=== PATIENT | female | born 1960 | race Caucasian/White ===

== ENCOUNTER → 2018-04-11 | Outpatient (CLI) | payer BC ==
--- NOTE | 2018-04-13 09:45 | MM ---
Reason for exam: screening (asymptomatic). Last mammogram was performed 3 years and 4 months ago. History: Patient is postmenopausal. Reductions of both breasts, 1986. Took hormonal contraceptives for 4 years beginning at age 17. Physical Findings: A clinical breast exam by your physician is recommended on an annual basis and results should be correlated with mammographic findings. MG Screening Mammo w CAD Bilateral CC and MLO view(s) were taken. Prior study comparison: December 24, 2014, bilateral MG screening mammo w CAD. April 22, 2012, bilateral digital screening mammo w/CAD. The breast tissue is almost entirely fat. There is chronic nodularity in the right breast. Bilateral breast mammoplasty changes. No significant changes when compared with prior studies. ASSESSMENT: Negative, BI-RAD 1 RECOMMENDATION: Routine screening mammogram of both breasts in 1 year.
== END | disposition home or self-care (01) ==
LOC: RADMAMWWP 10:56
PROVIDERS: ATTEND Family Medicine
DX: Z12.31 Encounter for screening mammogram for malignant neoplasm of breast (principal)
CPT/HCPCS: 77067

== ENCOUNTER → 2019-05-12 | Outpatient (CLI) | payer BC ==
--- NOTE | 2019-05-15 13:25 | MM ---
Reason for exam: screening (asymptomatic). Last mammogram was performed 1 year and 1 month ago. History: Patient is postmenopausal. Reductions of both breasts, 1986. Took hormonal contraceptives for 4 years beginning at age 17. Physical Findings: A clinical breast exam by your physician is recommended on an annual basis and results should be correlated with mammographic findings. MG 3D Screening Mammo W/Cad Bilateral CC and MLO view(s) were taken. Prior study comparison: April 11, 2018, bilateral MG screening mammo w CAD. December 24, 2014, bilateral MG screening mammo w CAD. There are scattered fibroglandular densities. No suspicious abnormality on the left. New central, likely inferior, outer distortion on CC 3D image . ASSESSMENT: Incomplete: need additional imaging evaluation, BI-RAD 0 RECOMMENDATION: Special view mammogram of the right breast. If lesion persists on supplemental views, image directed ultrasound is recommended. [facility] will attempt to contact patient to return for supplemental views and ultrasound if indicated.
== END | disposition home or self-care (01) ==
LOC: RADMAMWWP 08:02
PROVIDERS: ATTEND Family Medicine
DX: Z12.31 Encounter for screening mammogram for malignant neoplasm of breast (principal)
CPT/HCPCS: 77063; 77067

== ENCOUNTER → 2019-05-22 | Outpatient (CLI) | payer BC ==
--- NOTE | 2019-05-23 07:06 | MM ---
Reason for exam: additional evaluation requested from abnormal screening. Last mammogram was performed less than 1 month ago. History: Patient is postmenopausal. Reductions of both breasts, 1986. Took hormonal contraceptives for 4 years beginning at age 17. Physical Findings: Nurse did not find any significant physical abnormalities on exam. MG 3D Work Up W/Cad RT CC, MLO, and XCCL view(s) were taken of the right breast. Prior study comparison: May 12, 2019, bilateral MG 3d screening mammo w/cad. April 11, 2018, bilateral MG screening mammo w CAD. There are scattered fibroglandular densities. Right lower outer quadrant focal asymmetry at far posterior depth is seen on XCCL images only and stable from 03/01/06, precautionary ultrasound will be performed. These results were verbally communicated with the patient and result sheet given to the patient on 05/22/19. ASSESSMENT: Incomplete: need additional imaging evaluation, BI-RAD 0 RECOMMENDATION: Ultrasound of the right breast. lower outer quadrant
--- NOTE | 2019-05-23 07:08 | USB ---
Reason for exam: additional evaluation requested from abnormal screening. History: Patient is postmenopausal. Reductions of both breasts, 1985. Took hormonal contraceptives for 4 years beginning at age 17. US Breast Workup Limited RT Right limited breast ultrasound including focal area of concern, retroareolar and axilla demonstrates no cystic or solid lesion seen. Morphologically normal appearing non-enlarged lymph node. These results were verbally communicated with the patient and result sheet given to the patient on 05/22/19. ASSESSMENT: Benign, BI-RAD 2 RECOMMENDATION: Return to routine screening mammogram schedule for both breasts.
== END | disposition home or self-care (01) ==
LOC: RADMAMWWP 14:08
PROVIDERS: ATTEND Family Medicine
DX: R92.8 Other abnormal and inconclusive findings on diagnostic imaging of breast (principal)
CPT/HCPCS: 77061; 77065

== ENCOUNTER → 2019-10-12 | Outpatient (CLI) | payer BC ==
--- NOTE | 2019-10-14 18:30 | CT ---
EXAMINATION TYPE: CT abdomen pelvis w con DATE OF EXAM: 10/12/2019 COMPARISON: NONE HISTORY: 59-year-old female LLQ pain, bloating sensation after eating, throwing up and diarrhea, 20 l b weight loss since June TECHNIQUE: Contiguous axial scanning of the abdomen and pelvis following administration of 100 ml Iso shelby 300 IV contrast. Delayed images through the kidneys and coronal/sagittal reconstructions perform ed. CT DLP: 905.90 mGycm Automated exposure control for dose reduction was used. FINDINGS: Heart normal size without pericardial effusion. Some patchy opacity posterior right base, likely scar ring given the adjacent rib deformities. No pleural effusion. No focal liver lesion or biliary ductal dilatation. Portal venous system is patent. Gallbladder, adrenal glands, kidneys, spleen, and pancreas appear within normal limits there is a 3.7 cm diverticulum arising from the third portion of the duodenum projecting superiorly. No dilated small bowel, free fluid, or free air. No mesenteric or retroperitoneal lymphadenopathy. On the appendix is not discretely visualized, no secondary findings of acute appendicitis are identif ied. There is moderate to large stool burden and scattered mid to distal sigmoid diverticulosis. Slight irregularity along the posterior wall of the distal rectum on axial image 84, may be due to re dundant tissues. Bladder is nondistended. Uterus surgically absent. Phlebolith in left side of the pelvis. Both ovarie s are visualized and are small compatible with postmenopausal state. Bones: Hypertrophic facet arthropathy with grade 1 anterolisthesis L4-L5 and moderate to severe degen erative disc disease L5-S1. Additional moderate degenerative disc disease lower thoracic spine. IMPRESSION: 1. MODERATE TO LARGE STOOL BURDEN. CORRELATE FOR CONSTIPATION. 2. MID TO DISTAL SIGMOID DIVERTICULOSIS WITHOUT ACUTE DIVERTICULITIS. 3. SOME SLIGHT IRREGULARITY ALONG THE POSTERIOR WALL OF THE DISTAL RECTUM (AXIAL IMAGE 84) MAY BE DUE TO REDUNDANT TISSUE. CORRELATE WITH DIRECT VISUALIZATION TO EXCLUDE A SUBTLE MUCOSAL LESION/MASS.
== END | disposition home or self-care (01) ==
LOC: RADCTMAIN 12:50
PROVIDERS: ATTEND Family Medicine
DX: K57.30 Diverticulosis of large intestine without perforation or abscess without bleeding (principal); R19.5 Other fecal abnormalities; R14.0 Abdominal distension (gaseous)
CPT/HCPCS: 74177; Q9967

== ENCOUNTER → 2019-12-05 | Day surgery (SDC) | payer BC ==
[2019-12-01 11:09] VITALS: BMI 28.8
[~2019-12-05] MED LIST: LACTATED RINGERS 1,000 ML IV SCH; LIDOCAINE 1% 20 ML VIAL (10MG/ML) FOR IV START INTRADERMA PRN; PROPOFOL 10 MG/ML 20 ML VIAL IV ONE
[2019-12-05 09:40] VITALS: TEMP 97
[2019-12-05 09:41] LABS: Glucose,Whole Blood 168 mg/dL (75-99)
--- NOTE | 2019-12-05 11:00 | P.PCN ---
Date of Procedure: 12/05/19 Description of Procedure: BRIEF HISTORY: Patient is a 59-year-old female presenting for outpatient esophagogastroduodenoscopy for evaluation of epigastric abdominal pain. The patient reports symptoms including therapy gastric abdominal pain, alternating bowel habits with diarrhea and constipation, nausea, early satiety as well as bloating and heartburn. PROCEDURE PERFORMED: Esophagogastroduodenoscopy with biopsy. PREOPERATIVE DIAGNOSIS: Epigastric abdominal pain. ESTIMATED BLOOD LOSS: Minimal. IV sedation per anesthesia. PROCEDURE: After informed consent was obtained, the patient was brought into the endoscopy unit. IV sedation was administered by Anesthesia under continuous monitoring. Initially the Olympus GIF-190 video endoscope was inserted into the mouth. Esophagus intubated without any difficulty. It was gradually advanced into the stomach and duodenum and carefully examined. The bulb and the second part of the duodenum appeared normal, with biopsies taken to rule out celiac sprue. The scope at this time was withdrawn to the stomach, adequately insufflated with air, and upon careful examination, mucosa of the antrum, body, cardia and the fundus appeared normal, except for some erythema in the antrum and body and some nodularity in the antrum suggestive of mild gastritis with biopsies of the antrum and body taken. The scope was then withdrawn into the esophagus. The GE junction was located at 37 cm from the incisors and appeared regular with bi opsies taken to rule out reflux esophagitis. The esophagus appeared normal. There were no erosions or ulcerations seen and the patient tolerated the procedure well. IMPRESSION: 1. Mild gastritis antrum and body, biopsied. 2. Biopsies of the duodenum and GE junction. RECOMMENDATIONS: The findings of this examination were discussed with the patient and her family. Okay to resume diet. Okay to resume medications. Await pathology from biopsies. Follow up in gastroenterology clinic as previously scheduled.
[2019-12-05 11:03] VITALS: RESP 16
[2019-12-05 11:26] VITALS: BP 120/75; PULSE 71
== END ==
LOC: ORWHC2ENDO 09:03
PROVIDERS: ATTEND Internal Medicine
DX: K29.50 Unspecified chronic gastritis without bleeding (principal); K20.9 Esophagitis, unspecified; K59.00 Constipation, unspecified; R19.7 Diarrhea, unspecified; I10 Essential (primary) hypertension; E78.5 Hyperlipidemia, unspecified; E11.9 Type 2 diabetes mellitus without complications; F32.9 Major depressive disorder, single episode, unspecified; Z79.899 Other long term (current) drug therapy; Z79.84 Long term (current) use of oral hypoglycemic drugs; Z88.1 Allergy status to other antibiotic agents; Z88.5 Allergy status to narcotic agent; Z88.8 Allergy status to other drugs, medicaments and biological substances; Z90.710 Acquired absence of both cervix and uterus; Z98.890 Other specified postprocedural states
CPT/HCPCS: 88305; 43239; J2704

== ENCOUNTER → 2020-12-27 | Outpatient (CLI) | payer BC ==
--- NOTE | 2020-12-27 08:36 | US ---
EXAMINATION TYPE: US duplex aorta DATE OF EXAM: 12/27/2020 COMPARISON: NONE CLINICAL HISTORY: Z82.49 FAM HX ISCHEMIC HEART DISEASE,I10 HTN,TYPE II DM. EXAM MEASUREMENTS: Abdominal Aorta: Proximal: 2.1cm Mid: 1.6cm Distal: 1.4cm Bifurcation: Right: 1.0cm Left: 0.9cm IMPRESSION: No evidence for abdominal aortic aneurysm.
== END | disposition home or self-care (01) ==
LOC: RADUSWWP 07:38
PROVIDERS: ATTEND Family Medicine
DX: I10 Essential (primary) hypertension (principal); E11.40 Type 2 diabetes mellitus with diabetic neuropathy, unspecified; Z82.49 Family history of ischemic heart disease and other diseases of the circulatory system
CPT/HCPCS: 93979

== ENCOUNTER → 2021-04-09 | Outpatient (CLI) | payer BC ==
--- NOTE | 2021-04-14 09:31 | MM ---
Reason for exam: screening (asymptomatic). Last mammogram was performed 1 year and 11 months ago. History: Patient is postmenopausal. Reductions of both breasts, 1986. Took hormonal contraceptives for 4 years beginning at age 17. Physical Findings: A clinical breast exam by your physician is recommended on an annual basis and results should be correlated with mammographic findings. MG Screening Mammo w CAD Bilateral CC and MLO view(s) were taken. Prior study comparison: May 22, 2019, right breast MG 3d work up w/cad RT. May 12, 2019, bilateral MG 3d screening mammo w/cad. There are scattered fibroglandular densities. ASSESSMENT: Benign, BI-RAD 2 RECOMMENDATION: Routine screening mammogram of both breasts in 1 year.
== END | disposition home or self-care (01) ==
LOC: RADMAMWWP 13:20
PROVIDERS: ATTEND Family Medicine
DX: Z12.31 Encounter for screening mammogram for malignant neoplasm of breast (principal)
CPT/HCPCS: 77067

== ENCOUNTER 2021-08-03 13:49 | Emergency (ER) | payer BC ==
[2021-08-03] MEDS ORDERED: SODIUM CHLORIDE 0.9% 1,000 ML IV STA (14:34)
[2021-08-03] MEDS ORDERED: ONDANSETRON 4 MG/2 ML VIAL IVP STA (14:39)
[2021-08-03] MEDS ORDERED: FAMOTIDINE 20 MG/2 ML VIAL IV STA (14:39)
[2021-08-03] MEDS ORDERED: HYDROmorphone 0.5 MG/0.5 ML SYRINGE IVP STA (14:40)
--- NOTE | 2021-08-03 15:25 | ED ---
Abdominal Pain HPI - General Chief Complaint: Abdominal Pain Stated Complaint: Stomach pain Time Seen by Provider: 08/03/21 14:25 Source: patient Mode of arrival: wheelchair Limitations: no limitations - History of Present Illness Initial Comments: 61-year-old female presented emergency department with a chief complaint of abdominal pain. Patient reports the pain started about 5 days ago and she went to see her primary care physician who gave her Zofran, Cipro and Flagyl. States she was treating diverticulitis. Patient had no recent imaging. She states the pain is not improving and she continues to feel bloated. She also reports pain in the left lower quadrant region. Reports some nausea but denies any vomiting. The report one episode of diarrhea a few days ago. States she has not had a bowel movement in about one week. She denies any fevers or chills at home. Denies any chest pain or shortness of breath. Reports decreased appetite due to bloating. Denies any urinary or vaginal symptoms. - Related Data Home Medications Medication Instructions Recorded Confirmed Atorvastatin [Lipitor] 20 mg PO DAILY 12/01/19 08/03/21 Venlafaxine HCl [Effexor XR] 75 mg PO DAILY 12/01/19 08/03/21 Ciprofloxacin HCl [Cipro] 500 mg PO Q12HR 08/03/21 08/03/21 Hydrochlorothiazide 12.5 mg PO DAILY 08/03/21 08/03/21 [hydroCHLOROthiazide] Losartan Potassium 100 mg PO DAILY 08/03/21 08/03/21 Ondansetron Odt [Zofran Odt] 4 - 8 mg PO TID PRN 08/03/21 08/03/21 glipiZIDE XL [Glucotrol Xl] 20 mg PO DAILY 08/03/21 08/03/21 metFORMIN HCL [Glucophage] 1,000 mg PO BID 08/03/21 08/03/21 metroNIDAZOLE [Flagyl] 500 mg PO QID 08/03/21 08/03/21 Allergies Allergy/AdvReac Type Severity Reaction Status Date / Time acetaminophen Allergy Unknown Verified 08/03/21 14:59 [From Darvocet-N 100] cephalexin [From Keflex] Allergy Unknown Verified 08/03/21 14:59 epinephrine Allergy tongue Verified 08/03/21 14:59 swelling propoxyphene Allergy Unknown Verified 08/03/21 14:59 [From Darvocet-N 100] codeine AdvReac Nausea & Verified 08/03/21 14:59 Vomiting Review of Systems ROS Statement: Those systems with pertinent positive or pertinent negative responses have been documented in the HPI. ROS Other: All systems not noted in ROS Statement are negative. Past Medical History Past Medical History: Diabetes Mellitus History of Any Multi-Drug Resistant Organisms: None Reported Past Surgical History: Breast Surgery, Hysterectomy Past Psychological History: Anxiety, Depression Smoking Status: Never smoker Past Alcohol Use History: None Reported Past Drug Use History: None Reported General Exam Limitations: no limitations General appearance: alert, in no apparent distress, obese Head exam: Present: atraumatic, normocephalic, normal inspection Eye exam: Present: normal appearance Pupils: Present: normal accommodation ENT exam: Present: normal exam, normal oropharynx, mucous membranes moist, TM's normal bilaterally, normal external ear exam Neck exam: Present: normal inspection, full ROM. Absent: tenderness Respiratory exam: Present: normal lung sounds bilaterally. Absent: respiratory distress, wheezes, rhonchi, stridor Cardiovascular Exam: Present: regular rate, normal rhythm, normal heart sounds. Absent: systolic murmur, diastolic murmur GI/Abdominal exam: Present: soft, distended, tenderness (Left lower quadrant tenderness). Absent: guarding, rebound, rigid Extremities exam: Present: normal inspection, full ROM, normal capillary refill. Absent: tenderness, pedal edema, joint swelling Back exam: Present: normal inspection, full ROM. Absent: tenderness, CVA tenderness (R), CVA tenderness (L) Neurological exam: Present: alert, oriented X3 Psychiatric exam: Present: normal affect, normal mood Skin exam: Present: warm, dry, intact, normal color Course Vital Signs 08/03/21 13:51 Temperature 98.0 F Pulse Rate 93 Respiratory 20 Rate Blood Pressure 121/83 O2 Sat by Pulse 98 Oximetry Medical Decision Making - Medical Decision Making 61-year-old female presented emergency department with a chief complaint of abdominal pain. On physical examination, left lower quadrant tenderness. Patient is otherwise well appearing and resting comfortably in bed. CBC CMP UA unremarkable. CT of abdomen and pelvis shows diverticulosis but no diverticulit is. Patient is not taking a laxative. i will give the patient magnesium citrate but advised her to start with regular MiraLAX. I will also prescribe some omeprazole for the next week. I advised her to follow-up with her primary care physician. Return parameters were thoroughly discussed with patient is understanding and agreeable. Case discussed with physician - Lab Data Result diagrams: 08/03/21 15:39 08/03/21 15:39 Lab Results 08/03/21 08/03/21 08/03/21 Range/Units 15:39 15:39 15:39 WBC 7.7 (3.8-10.6) k/uL RBC 4.36 (3.80-5.40) m/uL Hgb 14.4 (11.4-16.0) gm/dL Hct 41.2 (34.0-46.0) % MCV 94.5 D (80.0-100.0) fL MCH 33.0 (25.0-35.0) pg MCHC 34.9 (31.0-37.0) g/dL RDW 12.8 (11.5-15.5) % Plt Count 253 (150-450) k/uL MPV 6.4 Neutrophils % 52 % Lymphocytes % 35 % Monocytes % 5 % Eosinophils % 4 % Basophils % 1 % Neutrophils # 4.0 (1.3-7.7) k/uL Lymphocytes # 2.7 (1.0-4.8) k/uL Monocytes # 0.4 (0-1.0) k/uL Eosinophils # 0.3 (0-0.7) k/uL Basophils # 0.1 (0-0.2) k/uL Sodium 137 (137-145) mmol/L Potassium 4.1 (3.5-5.1) mmol/L Chloride 106 (98-107) mmol/L Carbon Dioxide 21 L (22-30) mmol/L Anion Gap 10 mmol/L BUN 15 (7-17) mg/dL Creatinine 0.41 L (0.52-1.04) mg/dL Est GFR (CKD-EPI)AfAm >90 (>60 ml/min/1.73 sqM) Est GFR (CKD-EPI)NonAf >90 (>60 ml/min/1.73 sqM) Glucose 148 H (74-99) mg/dL Calcium 9.2 (8.4-10.2) mg/dL Total Bilirubin 0.6 (0.2-1.3) mg/dL AST 28 (14-36) U/L ALT 27 (4-34) U/L Alkaline Phosphatase 69 (38-126) U/L Total Protein 7.1 (6.3-8.2) g/dL Albumin 4.4 (3.5-5.0) g/dL Lipase 443 H (23-300) U/L Urine Color Light Yellow Urine Appearance Clear (Clear) Urine pH 5.0 (5.0-8.0) Ur Specific [place] 1.020 (1.001-1.035) Urine Protein Negative (Negative) Urine Glucose (UA) 4+ H (Negative) Urine Ketones Negative (Negative) Urine Blood Negative (Negative) Urine Nitrite Negative (Negative) Urine Bilirubin Negative (Negative) Urine Urobilinogen <2.0 (<2.0) mg/dL Ur Leukocyte Esterase Trace H (Negative) Urine RBC 1 (0-5) /hpf Urine WBC <1 (0-5) /hpf Ur Squamous Epith Cells <1 (0-4) /hpf Urine Mucus Rare H (None) /hpf Disposition Clinical Impression: Constipation, Abdominal pain Disposition: HOME SELF-CARE Condition: Stable Instructions (If sedation given, give patient instructions): Abdominal Pain (ED), Constipation (DC) Additional Instructions: Please return to the Emergency Department if symptoms worsen or any other concerns. Is patient prescribed a controlled substance at d/c from ED?: No Referrals: Poppy Park MD [Primary Care Provider] - 1-2 days Time of Disposition: 18:21
[2021-08-03 16:03] LABS: Appearance,Urine Clear (Clear); Bilirubin,Urine Negative (Negative); Blood,Urine Negative (Negative); Color,Urine Light Yellow; Glucose,Urine (UA) 4+ (Negative); Ketones,Urine Negative (Negative); Leukocyte Esterase,Urine Trace (Negative); Mucus,Urine Rare /hpf; Nitrite,Urine Negative (Negative); Protein,Urine Negative (Negative); RBC,Urine 1 /hpf (0-5); Squamous Epithelial Cell,Urine <1 /hpf (0-4); Urobilinogen,Urine <2.0 mg/dL (<2.0); WBC,Urine <1 /hpf (0-5)
[2021-08-03 16:09] LABS: ALT 27 U/L (4-34); AST 28 U/L (14-36); African American GFR (CKD) >90 (>60 ml/min/1.73 sqM); Albumin 4.4 g/dL (3.5-5.0); Alkaline Phosphatase 69 U/L (38-126); Anion Gap 10 mmol/L; Blood Urea Nitrogen 15 mg/dL (7-17); Calcium 9.2 mg/dL (8.4-10.2); Carbon Dioxide 21 mmol/L (22-30); Chloride 106 mmol/L (98-107); Glucose 148 mg/dL (74-99); Lipase 443 U/L (23-300); Non-African American GFR(CKD) >90 (>60 ml/min/1.73 sqM); Sodium 137 mmol/L (137-145); Total Bilirubin 0.6 mg/dL (0.2-1.3); Total Protein 7.1 g/dL (6.3-8.2)
[2021-08-03 16:11] LABS: Basophils # (A) 0.1 k/uL (0-0.2); Basophils % (A) 1 %; Eosinophils # (A) 0.3 k/uL (0-0.7); Eosinophils % (A) 4 %; HCT 41.2 % (34.0-46.0); HGB 14.4 gm/dL (11.4-16.0); Lymphocytes # (A) 2.7 k/uL (1.0-4.8); Lymphocytes % (A) 35 %; MCHC 34.9 g/dL (31.0-37.0); Mean Platelet Volume 6.4; Monocytes # (A) 0.4 k/uL (0-1.0); Monocytes % (A) 5 %; Neutrophils % (A) 52 %; Platelet Count 253 k/uL (150-450); RBC 4.36 m/uL (3.80-5.40); RDW 12.8 % (11.5-15.5); WBC 7.7 k/uL (3.8-10.6)
[2021-08-03 16:26] LABS: MCV 94.5 fL (80.0-100.0)
[2021-08-03 16:54] LABS: Potassium 4.1 mmol/L (3.5-5.1)
--- NOTE | 2021-08-03 17:24 | CT ---
EXAMINATION TYPE: CT abdomen pelvis w con DATE OF EXAM: 08/03/2021 COMPARISON: CT abdomen/pelvis 10/12/2019 HISTORY: c/o abdominal pain and constipation CT DLP: 1138.9 mGycm. Automated Exposure Control for Dose Reduction was Utilized. TECHNIQUE: Multiple contiguous axial CT images of the abdomen and pelvis were obtained from the lung bases through the pubic symphysis with IV Contrast, patient injected with 100 mL of Isovue 300. 2-D s agittal and coronal reformatted images were obtained. FINDINGS: Lung bases are clear. Liver has a diffuse decreased attenuation likely due to fatty infiltration. Spleen, pancreas, and fred ateral adrenal glands have an unremarkable enhanced appearance. Gallbladder is present. No definite intrahepatic or extrahepatic biliary ductal dilatation. Kidneys are symmetric in size without hydronephrosis. No renal or ureteral calculi. Urinary bladder a ppears unremarkable. Uterus is absent. No adnexal masses. No free fluid. Visualized bowel is of normal caliber without evidence of obstruction. No significant mesenteric infl ammation. Duodenal diverticulum of the third portion. Moderate burden of distal colonic diverticulosi s without adjacent inflammatory changes. Colon is partially fluid-filled which can be seen with a awais rrheal state. Appendix appears unremarkable. No free air. Abdominal aorta is of normal caliber. No intra-abdominal or retroperitoneal lymphadenopathy. Subcutan eous soft tissues appear unremarkable. Osseous structures appear intact. IMPRESSION: 1. No acute intra-abdominal process. No bowel obstruction. 2. Distal colonic diverticulosis without diverticulitis. 3. Hepatic steatosis. 4. Duodenal diverticulum.
[2021-08-03] MEDS ORDERED: MAGNESIUM CITRATE 296 ML BOTTLE PO ONE (18:14)
[2021-08-03 18:41] VITALS: BP 129/77; PULSE 76; RESP 18; TEMP 97.9
== END 2021-08-03 18:41 | disposition home or self-care (01) ==
LOC: EC 13:49
DX: K59.00 Constipation, unspecified (principal); R10.32 Left lower quadrant pain; E11.9 Type 2 diabetes mellitus without complications; F32.9 Major depressive disorder, single episode, unspecified; F41.9 Anxiety disorder, unspecified; Z79.84 Long term (current) use of oral hypoglycemic drugs; Z79.899 Other long term (current) drug therapy; Z88.1 Allergy status to other antibiotic agents; Z88.5 Allergy status to narcotic agent
CPT/HCPCS: 36415; 80053; 83690; 85025; 81001; 74177; 96374; 96375 ×2; 96361; 99284; J2405; J1170; Q9967

== ENCOUNTER → 2022-02-18 | Outpatient (CLI) | payer OTHER ==
--- NOTE | 2022-02-18 15:21 | XR ---
Fifth digit left hand HISTORY: Laceration 3 views of the fifth digit left hand There is an overlying dressing. No radiopaque foreign body. Bone mineralization, alignment maintained . Mild arthropathy change. IMPRESSION: No fracture or dislocation.
== END | disposition home or self-care (01) ==
LOC: RADXRMAIN 14:42
PROVIDERS: ATTEND Emergency Medicine
DX: S61.219A Laceration without foreign body of unspecified finger without damage to nail, initial encounter (principal); X58.XXXA Exposure to other specified factors, initial encounter

== ENCOUNTER → 2022-04-14 | Outpatient (CLI) | payer BC ==
--- NOTE | 2022-04-16 14:52 | MM ---
Reason for Exam: Screening (asymptomatic). Last screening mammogram was performed 12 month(s) ago. Patient History: Menarche at age 10. First Full-Term at age 28. Late child-bearing (after 28). Hysterectomy at age 40. Postmenopausal. Hormonal Contraceptives for 4 years from age 17 until age 21. 1986, Bilateral Reduction. Risk Values: Eleanor 5 year model risk: 2.2%. NCI Lifetime model risk: 8.9%. Film Views: Bilateral CC views were taken. Bilateral MLO views were taken. Prior Study Comparison: 05/12/2019 Bilateral Screening Mammogram, [facility]. 05/22/2019 Right Diagnostic Mammogram, [facility]. 04/09/2021 Bilateral Screening Mammogram, [facility]. Tissue Density: The breast tissue is almost entirely fat. Findings: Analyzed By CAD. There is no suspicious group of microcalcifications or new suspicious mass in either breast. Overall Assessment: Benign, BI-RAD 2 Management: Screening Mammogram of both breasts in 1 year. A clinical breast exam by your physician is recommended on an annual basis and results should be correlated with mammographic findings. Electronically signed and approved by: Yovany Moreland M.D. Radiologis
== END | disposition home or self-care (01) ==
LOC: RADMAMWWP 10:03
PROVIDERS: ATTEND Family Medicine
DX: Z12.31 Encounter for screening mammogram for malignant neoplasm of breast (principal); Z78.0 Asymptomatic menopausal state
CPT/HCPCS: 77067

== ENCOUNTER → 2023-04-30 | Outpatient (CLI) | payer MEDICARE ==
--- NOTE | 2023-05-03 08:33 | MM ---
Reason for Exam: Screening (asymptomatic). Last mammogram was performed 1 year(s) and 1 month(s) ago. Patient History: Menarche at age 10. First Full-Term at age 28. Late child-bearing (after 28). Hysterectomy at age 40. Postmenopausal. Hormonal Contraceptives for 4 years from age 17 until age 21. 1986, Bilateral Reduction. Risk Values: Eleanor 5 year model risk: 2.3%. NCI Lifetime model risk: 8.6%. Prior Study Comparison: 12/24/2014 Bilateral Screening Mammogram, [facility]. 04/11/2018 Bilateral Screening Mammogram, [facility]. 05/12/2019 Bilateral Screening Mammogram, [facility]. 05/22/2019 Right Diagnostic Mammogram, [facility]. 04/09/2021 Bilateral Screening Mammogram, [facility]. 04/14/2022 Bilateral MG screening mammo w CAD, [facility]. Tissue Density: There are scattered fibroglandular densities. Findings: Analyzed By CAD. There is no suspicious group of microcalcifications or new suspicious mass in either breast. Overall Assessment: Benign, BI-RAD 2 Management: Screening Mammogram of both breasts in 1 year. . Patient should continue monthly self-breast exams. A clinical breast exam by your physician is recommended on an annual basis. This exam should not preclude additional follow-up of suspicious palpable abnormalities. Note on Eleanor scores and lifetime risk: 1. A Eleanor score greater than 3% is considered moderate risk. If this is the case, consider specialist referral to assess eligibility for a risk reducing agent. 2. If overall lifetime risk for the development of breast cancer is 20% or higher, the patient may qualify for future screening with alternating mammogram and breast MRI. Electronically signed and approved by: Nitin Duarte M.D. Radiologis
== END | disposition home or self-care (01) ==
LOC: RADMAMWWP 08:25
PROVIDERS: ATTEND Family Medicine
DX: Z12.31 Encounter for screening mammogram for malignant neoplasm of breast (principal); Z78.0 Asymptomatic menopausal state
CPT/HCPCS: 77063; 77067

== ENCOUNTER → 2024-06-15 | Outpatient (CLI) | payer MEDICARE ==
--- NOTE | 2024-06-16 13:18 | BD ---
EXAMINATION TYPE: Axial Bone Density DATE OF EXAM: 06/15/2024 CLINICAL HISTORY: 64 years old Female. ICD-10 CODE: Z780 ASYMPTOMATIC [place] Height: 62.25 Weight: 175 FRAX RISK QUESTIONS: Family History (Parent hip fracture): no History of Fracture in Adulthood: no Secondary Osteoporosis: no RISK FACTORS HISTORY OF: Surgery to Spine/Hip(right/left)/Wrist (right/left): no MEDICATIONS: Thyroid Medications: no Osteoporosis Medications: no EXAM MEASUREMENTS: Bone mineral densitometry was performed using the SmartRx System. Bone mineral density as measured about the Lumbar spine is: ----- L1-L4(G/cm2): 1.438 T Score Values are as follows: ----- L1: 2.2 ----- L2: 1.6 ----- L3: 3.0 ----- L4: 1.6 ----- L1-L4: 2.1 Z Score Values are as follows: ----- L1: 3.3 ----- L2: 2.7 ----- L3: 4.1 ----- L4: 2.7 ----- L1-L4: 3.3 Bone mineral density has: Increased 11.4% since study of: 12/11/2003 Bone mineral density about the R hip (g/cm2): 1.063 Bone mineral density about the L hip (g/cm2): 1.074 T Score values are as follows: -----R Neck: -0.8 -----L Neck: -1.4 -----R Total: 0.4 -----L Total: 0.5 Z Score values are as follows: -----R Neck: 0.4 -----L Neck: -0.2 -----R Total: 1.4 -----L Total: 1.4 Bone mineral density has: Decreased -0.5% since study of: 12/11/2003 FRAX%s: The graph provided illustrates a 8.5% chance for a major osteoporotic fx and a 0.9% chance fo r the hips probability for fx in 10 years time. IMPRESSION: Normal (Values between +1 and -1 indicate normal bone mass). Consider repeating this study in 5 year s or sooner if there is some new clinical indication. NOTE: T-SCORE=SD OF THE YOUNG ADULT MEAN.
--- NOTE | 2024-06-20 08:50 | MM ---
Reason for Exam: Screening (asymptomatic). Last mammogram was performed 1 year(s) and 1 month(s) ago. Patient History: Menarche at age 10. First Full-Term at age 28. Late child-bearing (after 28). Hysterectomy at age 40. Postmenopausal. Hormonal Contraceptives for 4 years from age 17 until age 21. 1986, Bilateral Reduction. Risk Values: Eleanor 5 year model risk: 2.3%. NCI Lifetime model risk: 8.2%. Prior Study Comparison: 04/09/2021 Bilateral Screening Mammogram, [facility]. 04/14/2022 Bilateral MG screening mammo w CAD, [facility]. 04/30/2023 Bilateral MG 3D screening mammo w/cad, [facility]. Tissue Density: The breasts are almost entirely fatty. Findings: Analyzed By CAD. Right breast: There is no suspicious group of microcalcifications or new suspicious mass. Left breast: There is no suspicious group of microcalcifications or new suspicious mass. Benign-appearing calcifications left breast. Overall Assessment: Benign, BI-RAD 2 Management: Screening Mammogram of both breasts in [address] [facility] will attempt to contact patient to return for supplemental views and ultrasound if indicated. Patient should continue monthly self-breast exams. A clinical breast exam by your physician is recommended on an annual basis. This exam should not preclude additional follow-up of suspicious palpable abnormalities. Note on Eleanor scores and lifetime risk: 1. A Eleanor score greater than 3% is considered moderate risk. If this is the case, consider specialist referral to assess eligibility for a risk reducing agent. 2. If overall lifetime risk for the development of breast cancer is 20% or higher, the patient may qualify for future screening with alternating mammogram and breast MRI. Electronically signed and approved by: Joe Pearson DO
== END | disposition home or self-care (01) ==
LOC: RADMAMWWP 14:41
PROVIDERS: ATTEND Family Medicine
DX: Z12.31 Encounter for screening mammogram for malignant neoplasm of breast (principal); R92.313 Mammographic fatty tissue density, bilateral breasts; M85.88 Other specified disorders of bone density and structure, other site; Z78.0 Asymptomatic menopausal state
CPT/HCPCS: 77063; 77067; 77080